=== PATIENT | male | born 1975 | race African-American/Black ===

== ENCOUNTER 2017-03-23 02:07 | Emergency (ER) | payer SELFPAY ==
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
[2017-03-23 02:29] VITALS: TEMP 97.5; BMI 31.0
[2017-03-23 03:13] LABS: BASOPHIL 0.7 % (0-2.0); EOSINOPHIL 3.7 % (0-4.5); MCH 29.1 pg (25.7-33.7); MCHC 33.4 g/dl (32.0-35.9); MEAN CELL VOLUME 86.9 fl (80-96); MEAN PLT VOLUME 7.5 fl (7.5-11.1); PLATELET COUNT 180 K/MM3 (134-434); WHITE BLOOD COUNT 5.2 K/mm3 (4.0-10.0)
[2017-03-23] MEDS ORDERED: HALOPERIDOL LACTATE 5 MG/ML IM ONE ×2 (03:13→08:07)
[2017-03-23] MEDS ORDERED: LORAZEPAM CARPU-JECT 2 MG/ML DISP.SYRIN IM ONE ×3 (03:13→11:37)
[2017-03-23] MEDS ORDERED: LORazepam 2 MG/ML SDV VIAL ONE ×3 (03:24→11:59)
[2017-03-23] MEDS ORDERED: HALOPERIDOL LACTATE 5 MG/ML ONE ×2 (03:24→08:11)
[2017-03-23 03:43] LABS: ALBUMIN 3.7 g/dl (3.4-5.0); BILIRUBIN,TOTAL 0.5 mg/dL (0.2-1.0); CALCIUM 9.3 mg/dL (8.5-10.1); COCKROFT - GAULT 95.44; CREATININE 1.4 mg/dL (0.7-1.3); TOT PROT 7.4 g/dl (6.4-8.2)
[2017-03-23 03:47] LABS: URINE APPEARANCE CLEAR; URINE BILIRUBIN NEGATIVE (NEGATIVE); URINE BLOOD NEGATIVE (NEGATIVE); URINE COLOR LTYELLOW; URINE GLUCOSE (UA) NEGATIVE (NEGATIVE); URINE KETONE NEGATIVE (NEGATIVE); URINE LEUK ESTERASE NEGATIVE (NEGATIVE); URINE NITRITE NEGATIVE (NEGATIVE); URINE PROTEIN NEGATIVE (NEGATIVE); URINE UROBILINOGEN NEGATIVE E.U./dl (0.2-1.0)
[2017-03-23 03:56] LABS: URINE MARIJUANA THC POSITIVE ng/ml (CUTOFF=50)
[2017-03-23 04:29] LABS: TROPONIN I < 0.02 ng/ml (0.00-0.05)
[2017-03-23] MEDS ORDERED: ACETAMINOPHEN 325 MG TABLET (FP) PO ONE (06:48)
[2017-03-23] MEDS ORDERED: ACETAMINOPHEN 325 MG TABLET (FP) ONE (06:49)
[2017-03-23] MEDS ORDERED: MIDAZOLAM HCL 2 MG/2 ML SINGLE DOSE VIAL ONE ×4 (08:14→14:52)
[2017-03-23] MEDS ORDERED: MIDAZOLAM HCL 2 MG/2 ML SINGLE DOSE VIAL IVPUSH ONE (08:23)
[2017-03-23] MEDS ORDERED: MIDAZOLAM HCL 2 MG/2 ML SINGLE DOSE VIAL IM ONE ×4 (08:57→14:46)
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
--- NOTE | 2017-03-23 11:54 | CON.PSY ---
Psychiatry Consult Chief Complaint: Assaultive Behaviour, Paranoia and delusional thinking and behaviour. Symptoms: reports: Aggressivity, Impulsivity, Disorganized/Disruptive Thoughts, Delusions, Paranoia - Previous Psychiatric Treatment Outpatient: More than 6 mos ago Inpatient: Within the last 12 months - Reason for Previous Treatment Reason for Previous Treatment: Biploar Illness, Psychotic Episode - Allergies Allergies: Allergies Allergy/AdvReac Type Severity Reaction Status Date / Time No Known Allergies Allergy Verified 03/23/17 02:19 - Current Living Status Usual Living Arrangement: With Parent - Current Mental Status Evaluation Appearance: Disheveled Attitude: Belligerent - Affect Affect: Expansive Appropriateness: Not Appropriate - Mood Mood: Angry - Speech/Language Expressive: Coherent Receptive: Age Appropriate Comprehension of Spoken Words - Psychomotor Activity Psychomotor Activity: Agitated - Thought Process Thought Process: Loosening of Associations - Thought Content Hallucinations: Present Type: Auditory Delusions: Present Type: Persectory, Grandiose - Self Perception Self Perception: Depersonalization - Cognition Attention: Alert Orientation: Time Memory, Immediate Recall: Intact Memory, Short Term: 2/3 Memory, Remote with Promptin/3 - Concentration Serial Sevens Intact: No Simple Calculations Intact: No - Abstraction Proverb Interpretation: Impaired Judgement: Severely Impaired - Insight Insight: Impaired - Impulse Control Impulse Control: Severly Impaired - Suicidal Ideation Suicidal Ideation: No - Homicidal Ideation Homicidal Ideation: Yes Assessment/Plan Patient requires In Patient Psych Hospitalization.
[2017-03-23] MEDS ORDERED: LORAZEPAM CARPU-JECT 2 MG/ML DISP.SYRIN ONE (12:01)
[2017-03-23] MEDS ORDERED: SODIUM CHLORIDE 1,000 ML IV STA (13:50)
--- NOTE | 2017-03-23 14:07 | EKG ---
Test Reason : Blood Pressure : / mmHG Vent. Rate : 104 BPM Atrial Rate : 104 BPM P-R Int : 160 ms QRS Dur : 074 ms QT Int : 320 ms P-R-T Axes : 040 -07 024 degrees QTc Int : 420 ms SINUS TACHYCARDIA OTHERWISE NORMAL ECG NO PREVIOUS ECGS AVAILABLE Confirmed by ZEV CHOWDHURY MD ([id number]) on 03/23/2017 2:07:24 PM Referred By: Confirmed By:ZEV CHOWDHURY MD
[2017-03-23] MEDS ORDERED: VALPROATE SODIUM 500 MG/5 ML VIAL IVPB ONE (14:56)
[2017-03-23] MEDS ORDERED: ACETAMINOPHEN WITH CODEINE 300MG/30MG TABLET PO ONE (16:33)
[2017-03-23] MEDS ORDERED: ACETAMINOPHEN WITH CODEINE 300MG/30MG TABLET ONE (16:39)
[2017-03-23 17:22] VITALS: BP 130/57; PULSE 82
== END 2017-03-23 17:24 | disposition short-term general hospital (02) ==
LOC: JER 02:07
PROC: 3E023NZ Introduction of Analgesics, Hypnotics, Sedatives into Muscle, Percutaneous Approach (ICD-10-PCS; principal; 2017-03-23)
PROC: 3E023NZ Introduction of Analgesics, Hypnotics, Sedatives into Muscle, Percutaneous Approach (ICD-10-PCS; 2017-03-23)
PROC: 3E023NZ Introduction of Analgesics, Hypnotics, Sedatives into Muscle, Percutaneous Approach (ICD-10-PCS; 2017-03-23)
PROC: 3E023NZ Introduction of Analgesics, Hypnotics, Sedatives into Muscle, Percutaneous Approach (ICD-10-PCS; 2017-03-23)
PROC: 3E023NZ Introduction of Analgesics, Hypnotics, Sedatives into Muscle, Percutaneous Approach (ICD-10-PCS; 2017-03-23)
PROC: 3E023GC Introduction of Other Therapeutic Substance into Muscle, Percutaneous Approach (ICD-10-PCS; 2017-03-23)
PROC: 3E023GC Introduction of Other Therapeutic Substance into Muscle, Percutaneous Approach (ICD-10-PCS; 2017-03-23)
DX: R31.9 Hematuria, unspecified (principal); F10.120 Alcohol abuse with intoxication, uncomplicated
CPT/HCPCS: 36415; 70450-TC; 80053; 80307; 81003; 82550; 82553; 84484; 85025; 93005; 93010; 99285-25

== ENCOUNTER 2019-03-04 06:57 | Emergency (ER) | payer SELFPAY ==
[2019-03-04 07:23] VITALS: PULSE 86; TEMP 98.4; BMI 28.7
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
[2019-03-04 08:11] LABS: BASO % 0.4 % (0-2.0); EOS % 1.7 % (0-4.5); HEMATOCRIT 41.9 % (35.4-49); HEMOGLOBIN 14.2 GM/dL (11.7-16.9); LYMPH % 13.5 % (8-40); MCH 29.6 pg (25.7-33.7); MCHC 33.7 g/dl (32.0-35.9); MEAN CELL VOLUME 87.8 fl (80-96); MEAN PLT VOLUME 7.5 fl (7.5-11.1); MONO % 11.2 % (3.8-10.2); NEUT % 73.2 % (42.8-82.8); PLATELET COUNT 221 K/MM3 (134-434); RBC 4.78 M/mm3 (4.00-5.60); RDW 13.3 % (11.9-15.9)
--- NOTE | 2019-03-04 08:27 | PDOC ---
Attending Attestation - Resident Resident Name: UlisesSupa - ED Attending Attestation I have performed the following: I have examined & evaluated the patient, The case was reviewed & discussed with the resident, I agree w/resident's findings & plan - HPI HPI: 03/04/19 08:28 43M with a PMH of bipolar disorder and seizures presents to the ER with [place] [employer] for a possible syncopal episode. Per PD, the patient was in central booking, grabbed his chest, and fell forward, hitting his head on the ground. He states that he recalls everything but states that he felt shaking as well. back to baseline status, conversive. 03/04/19 08:28 - Physicial Exam PE: 03/04/19 11:22 Agree with the resident's HPI and PE as documented in the electronic medical record. NAD, cooperative, easily aroused and talkative, PERRL, EOMI, nl conjunctiva, anicteric; neck supple. lungs clear, RRR, abdomen soft nontender. BROWN x4, no focal neuro deficits. No peripheral edema. normal color for ethnicity, WWP. in handcuffs, police at bedside - Medical Decision Making 03/04/19 09:12 hpi as documented VS reviewed wnl DDX.: considered interval abnormalities including short QTC or long QT syndrome , WPW, conduction abnormality, Brugada, ACS, PE, ao dissection, electrolyte disturbances, metabolic derangement. CAMP ASSISTANT bleed/mass. seizure vs near syncope Elevated transaminases nieces with a ALT greater than AST, however patient does not have any abdominal symptoms so we'll follow up as an outpatient. CK level is lower than his prior elevations, unlikely precipitants and unremarkable. remainder of labs and lytes normal prior Utox +marijuana EKG normal sinus rhythm at 85 bpm, no interval abnormalities, narrow QRS, ST and T wave segments and morphology normal. no significant derangements,similar to prior. 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 11:[address] angio neg for PE or chest pathology. will discharge, unclear of near syncope episode. no sz activity, EKG without derangements, neg for injury or CAMP ASSISTANT bleed or emergent chest pathology fit for confinement. dispo: Pt informed of my clinical impression, treatment recommendations and disposition plan. All questions answered to patient's satisfaction and expressed understanding and comfort with this. Reasons for returning to the ED sooner discussed including new or persistent/worsening symptoms with the patient otherwise, follow up with primary care physician. At the time of discharge, the patient is alert, clinically improved, tolerating po and verbalizes understanding of instructions, satisfied with the care received and felt comfortable with the plan. Patient does not suffer from an acute life- threatening medical condition at this time and is safe for outpatient follow- up. 03/04/19 09:37 Heart Score/ECG Review #1 ECG reviewed & interpreted by me at: 07:45 General ECG Interpretation: Sinus Rhythm, Normal Rate, Normal Intervals Compared to previous ECG there are: No significant change 03/04/19 09:35 EKG normal sinus rhythm at 85 bpm, no interval abnormalities, narrow QRS, ST and T wave segments and morphology normal.
[2019-03-04 08:34] LABS: PROTHROMBIN TIME (PATIENT) 11.8 SEC (9.7-13.0)
[2019-03-04 08:51] LABS: ALBUMIN 3.8 g/dl (3.4-5.0); ALK PHOS 44 U/L (45-117); ANION GAP 3 MMOL/L (8-16); BILIRUBIN,TOTAL 0.2 mg/dL (0.2-1); BLOOD UREA NITROGEN 17 mg/dL (7-18); CALCIUM 9.5 mg/dL (8.5-10.1); CHLORIDE 101 mmol/L (98-107); CO2 31 mmol/L (21-32); CREATININE 1.1 mg/dL (0.55-1.3); GLUCOSE,RANDOM 92 mg/dL (74-106); POTASSIUM 4.2 mmol/L (3.5-5.1); SGOT/AST 77 U/L (15-37); SGPT/ALT 146 U/L (13-61); SODIUM 136 mmol/L (136-145); TOT PROT 7.5 g/dl (6.4-8.2)
[2019-03-04 11:07] LABS: ANISOCYTOSIS 0; MACROCYTOSIS 0; PLATELET ESTIMATE NORMAL
--- NOTE | 2019-03-04 11:40 | EKG ---
Test Reason : Blood Pressure : / mmHG Vent. Rate : 085 BPM Atrial Rate : 085 BPM P-R Int : 164 ms QRS Dur : 082 ms QT Int : 354 ms P-R-T Axes : 047 013 038 degrees QTc Int : 421 ms NORMAL SINUS RHYTHM NORMAL ECG WHEN COMPARED WITH ECG OF 23-MAR-2017 03:33, NO SIGNIFICANT CHANGE WAS FOUND Confirmed by JOO DUFFY MD ([id number]) on 03/04/2019 11:39:57 AM Referred By: Rosa ISABEL Confirmed By:JOO DUFFY MD
[2019-03-04 12:05] VITALS: BP 144/67
== END 2019-03-04 11:35 ==
LOC: JER 06:57
DX: R55 Syncope and collapse (principal); F31.9 Bipolar disorder, unspecified; R56.9 Unspecified convulsions; F17.210 Nicotine dependence, cigarettes, uncomplicated
CPT/HCPCS: 36415; 70450-TC; 71275-TC; 80053; 82550; 82553; 84484; 85025; 85379; 85610; 93005; 93010; 99283-25

== ENCOUNTER 2019-03-09 06:44 | Emergency (ER) | payer SELFPAY | END 2019-03-09 07:50 | disposition left against medical advice (07) | LOC: JER 06:44 ==

== ENCOUNTER 2019-07-09 11:33 | Emergency (ER) | payer OTHER ==
[2019-07-09 11:56] VITALS: BP 107/68; PULSE 78; TEMP 98.5; BMI 30.1
[2019-07-09] MEDS ORDERED: IBUPROFEN 400 MG TABLET (FP) PO ONE ×2 (12:23→12:29)
--- NOTE | 2019-07-09 12:24 | PDOC ---
History of Present Illness - General Chief Complaint: Injury Stated Complaint: LT MIDDLE FINGER LAC Time Seen by Provider: 07/09/19 11:40 History Source: Patient Exam Limitations: No Limitations (43y/o M with finger nail laceration) Past History - Travel Traveled outside of the country in the last 30 days: No Close contact w/someone who was outside of country & ill: No - Past Medical History Allergies/Adverse Reactions: Allergies Allergy/AdvReac Type Severity Reaction Status Date / Time fish oil Allergy Vomiting Verified 07/09/19 11:39 pollen extracts Allergy Verified 07/09/19 11:39 Home Medications: Ambulatory Orders Divalproex *ER* [Depakote *ER* -] 1,500 mg PO DAILY 03/23/17 Quetiapine Fumarate [Seroquel] 2 tab PO HS 03/23/17 Bacitracin - [Bacitracin Topical Ointment -] 1 applic TP BID 7 Days #30 gr 07/09 Cephalexin [Keflex] 500 mg PO BID 7 Days #14 capsule 07/09/19 Ibuprofen 600 mg PO ACDIN 7 Days #21 tablet 07/09/19 COPD: No Psychiatric Problems: Yes (BIPOLAR ON INJECTION MEDS) - Immunization History Immunization Up to Date: Yes - Suicide/Smoking/Psychosocial Hx Smoking History: Never smoked Have you smoked in the past 12 months: Yes Number of Cigarettes Smoked Daily: 4 Information on smoking cessation initiated: No Hx Alcohol Use: No Drug/Substance Use Hx: No Substance Use Type: Marijuana Review of Systems - Review of Systems Constitutional: No: Chills, Fever Musculoskeletal: Yes: Joint Pain, Other (left middle finger nail laceration). No: Joint Swelling, Muscle Pain, Joint Stiffness *Physical Exam - Vital Signs Last Vital Signs Temp Pulse Resp BP Pulse Ox 98.5 F 78 19 107/68 100 07/09/19 11:37 07/09/19 11:37 07/09/19 11:37 07/09/19 11:37 07/09/19 11:37 - Physical Exam General Appearance: Yes: Nourished Extremity: positive: Normal Capillary Refill, Erythema, Other (Left finger: transverse linear superfical nail bed laceration noted without loss of nail, finger tip tender) Neurologic: positive: watermaster II-XII NML intact, Fully Oriented, Alert, Normal Mood/ Affect, Normal Response, Motor Strength 5/5 ED Treatment Course - RADIOLOGY Radiology Studies Ordered: Category Date Time Status FINGER(S) LEFT [RAD] Stat Radiology 07/09/19 12:21 Ordered Medical Decision Making - Medical Decision Making 07/09/19 12:22 43 years old male with no prior medical history patient is [id number] he presents with left middle finger laceration sustained I will sustain Y working out today patient reported his finger was stuck why he was adjusting his pants that the metal clip landed vital his finger he almost fell off the bench and twisted his left knee as well. His last tetanus is greater than 10 years Examination consist of laceration after fingernail across the distal half of finger he does have full range of motion in the entire finger but is painful Left knee with full range of motion but with tenderness Plan is to x-ray to rule out any fracture tetanus will be updated Motrin for pain xray negative for fx nail bed explored after digital block with 1% lidocaine very superficial laceration it was dressed, finger splint applied abx to pharmacy 07/09/19 13:11 07/09/19 17:53 *DC/Admit/Observation/Transfer Diagnosis at time of Disposition: Laceration of nail bed of finger Qualifiers: Encounter type: initial encounter Qualified Code(s): S61.319A - Laceration without foreign body of unspecified finger with damage to nail, initial encounter Knee pain, left Qualifiers: Chronicity: acute Qualified Code(s): M25.562 - Pain in left knee - Discharge Dispostion Disposition: HOME Condition at time of disposition: Stable - Prescriptions Prescriptions: Bacitracin - [Bacitracin Topical Ointment -] 1 applic TP BID 7 Days #30 gr Cephalexin [Keflex] 500 mg PO BID 7 Days #14 capsule Ibuprofen 600 mg PO ACDIN 7 Days #21 tablet - Referrals Referrals: Gabriel Mary MD [Primary Care Provider] - Chirag Calvert MD [Staff Physician] - - Patient Instructions Printed Discharge Instructions: DI for Nail Bed Injury Additional Instructions: Your xray for finger and knee was negative pleas take antibiotics as prescribed follow up with orthopedic clinic Return to the ER if worsening symptoms occurs - Post Discharge Activity Forms/Work/School Notes: Back to Work
[2019-07-09] MEDS ORDERED: DIPHTH,PERTUSS(ACELL),TET 0.5 ML DISP.SYRIN IM ONE (12:31)
== END 2019-07-09 13:06 | disposition home or self-care (01) ==
LOC: JERFT 11:33
PROC: 2W3KX1Z Immobilization of Left Finger using Splint (ICD-10-PCS; principal; 2019-07-09)
PROC: 3E0234Z Introduction of Serum, Toxoid and Vaccine into Muscle, Percutaneous Approach (ICD-10-PCS; 2019-07-09)
DX: S61.313A Laceration without foreign body of left middle finger with damage to nail, initial encounter (principal); M25.562 Pain in left knee; W26.8XXA Contact with other sharp object(s), not elsewhere classified, initial encounter; Y93.B9 Activity, other involving muscle strengthening exercises; Y92.89 Other specified places as the place of occurrence of the external cause; Y99.8 Other external cause status
CPT/HCPCS: 29130; 73140-TC-LT-FY; 73560-TC-LT-FY; 90471; 90715; 99281-25

== ENCOUNTER 2022-09-05 22:03 | Inpatient (IN) | payer OTHER ==
[2022-09-05 22:08] VITALS: BMI 30.1
[2022-09-05] MEDS ORDERED: ACETAMINOPHEN 1000 MG/100 ML BAG IVPB ONE (22:54)
[2022-09-05] MEDS ORDERED: FAMOTIDINE 20 MG/50 ML IVPB 20 MG/50 ML MG IVPB ONE ×2 (22:54→23:06)
[2022-09-05] MEDS ORDERED: ACETAMINOPHEN INJECTION 100 ML IVPB ONE (23:06)
[2022-09-05] MEDS ORDERED: morphine CARPU-JECT 4 MG/1 ML DISP.SYRIN IVPUSH ONE (23:12)
[2022-09-05] MEDS ORDERED: ONDANSETRON 4 MG/2 ML VIAL IVPUSH ONE (23:14)
[2022-09-05] MEDS ORDERED: ONDANSETRON 4 MG/2 ML VIAL ONE (23:17)
[2022-09-05] MEDS ORDERED: morphine SULFATE 4 MG/ML VIAL ONE (23:17)
[2022-09-05 23:24] LABS: PH,URINE 6.5 (5.0-8.0); URINE APPEARANCE CLEAR; URINE BILIRUBIN NEGATIVE (NEGATIVE); URINE COLOR YELLOW; URINE GLUCOSE (UA) NEGATIVE (NEGATIVE); URINE KETONE NEGATIVE (NEGATIVE); URINE LEUK ESTERASE NEGATIVE (NEGATIVE); URINE NITRITE NEGATIVE (NEGATIVE); URINE PROTEIN NEGATIVE (NEGATIVE)
[2022-09-05 23:26] LABS: BASO % 0.2 % (0-2.0); HEMATOCRIT 43.4 % (35.4-49); HEMOGLOBIN 14.8 GM/dL (11.7-16.9); LYMPH % 8.3 % (8-40); MEAN CELL VOLUME 85.3 fl (80-96); MEAN PLT VOLUME 7.4 fl (7.5-11.1); MONO % 8.2 % (3.8-10.2); NEUT % 83.3 % (42.8-82.8); PLATELET COUNT 198 10^3/uL (134-434); RBC 5.09 M/mm3 (4.00-5.60); WHITE BLOOD COUNT 11.5 K/mm3 (4.0-10.0)
[2022-09-05 23:42] LABS: INR 1.18 (0.83-1.09); PROTHROMBIN TIME (PATIENT) 13.6 SEC (9.7-13.0)
[2022-09-05 23:44] LABS: ACTIVATED PTT 30.9 SECONDS (25.2-36.5)
[2022-09-05 23:45] LABS: ALBUMIN 3.7 g/dl (3.4-5.0); CALCIUM 9.2 mg/dL (8.5-10.1)
[2022-09-05 23:46] LABS: BLOOD UREA NITROGEN 13.1 mg/dL (7-18)
[2022-09-05 23:48] LABS: CREATININE 1.2 mg/dL (0.55-1.3)
[2022-09-05 23:50] LABS: BILIRUBIN,TOTAL 0.7 mg/dL (0.2-1); TOT PROT 7.5 g/dl (6.4-8.2)
[2022-09-06] MEDS ORDERED: SODIUM CHLORIDE 1,000 ML IV STA (01:43)
[2022-09-06] MEDS ORDERED: PIPERACILLIN/TAZOB 3.375 GM 3.375 GM in DEXTROSE 5%-WATER - 50 ML IVPB ONE (02:44)
[2022-09-06] MEDS ORDERED: morphine CARPU-JECT 2 MG/1 ML DISP.SYRIN IVPUSH ONE (02:44)
[2022-09-06] MEDS ORDERED: PIPERACILLIN/TAZOB 3.375 GM 3.375 GM/50 ML BAG IVPB ONE (02:46)
[2022-09-06] MEDS ORDERED: CIPROFLOXACIN 400 MG/D5W 400 MG/200 ML IVPB IVPB ONE (02:57)
[2022-09-06] MEDS ORDERED: SODIUM CHLORIDE 1,000 ML IV SCH (05:00)
[2022-09-06] MEDS ORDERED: BUPIVACAINE HCL/PF 0.5% (5MG/ML) 10 ML VIAL ONE (09:13)
[2022-09-06] MEDS ORDERED: LIDOCAINE HCL/PF 2% SDV 5ML VIAL ONE (09:27)
[2022-09-06] MEDS ORDERED: DEXAMETHASONE SOD PHOSPHATE 4 MG/1 ML VIAL ONE (09:27)
[2022-09-06] MEDS ORDERED: ONDANSETRON 4 MG/2 ML VIAL ONE (09:27)
[2022-09-06] MEDS ORDERED: MIDAZOLAM HCL 2 MG/2 ML SINGLE DOSE VIAL ONE (09:28)
[2022-09-06] MEDS ORDERED: PROPOFOL 20 ML ONE (09:28)
[2022-09-06] MEDS ORDERED: ROCURONIUM BROMIDE 50 MG/5 ML SYRINGE ONE (09:28)
[2022-09-06] MEDS ORDERED: SUCCINYLCHOLINE CHLORIDE 200 MG/10 ML SYRINGE ONE (09:36)
[2022-09-06] MEDS ORDERED: CEFTRIAXONE 2 GM-D5W BAG 2 GM/50 ML BAG IVPB SCH (10:00)
[2022-09-06] MEDS ORDERED: CEFTRIAXONE 2 GM in DEXTROSE 5%-WATER 100 ML IVPB SCH ×2 (10:00→18:00)
[2022-09-06] MEDS ORDERED: ceFAZolin SODIUM 1 GM VIAL ONE (10:04)
[2022-09-06] MEDS ORDERED: ceFAZolin SODIUM 1 GM VIAL IVPB ONE ×2 (10:05→10:08)
[2022-09-06] MEDS ORDERED: KETOROLAC TROMETHAMINE 30 MG/1 ML VIAL ONE (10:42)
[2022-09-06] MEDS ORDERED: GLYCOPYRROLATE 0.2 MG/1 ML VIAL ONE (10:42)
[2022-09-06] MEDS ORDERED: NEOSTIGMINE METHYLSULFATE 0.5 MG/1 ML - 10 ML MDV ONE (10:43)
[2022-09-06] MEDS ORDERED: ACETAMINOPHEN INJECTION 100 ML IVPB ONE ×2 (10:43→11:48)
[2022-09-06] MEDS ORDERED: BUPIVACAINE HCL/PF 0.5% (5 MG/ML) 30 ML VIAL IJ ONE (11:00)
[2022-09-06] MEDS ORDERED: SEVOFLURANE 250 ML BTL ONE (11:05)
[2022-09-06] MEDS ORDERED: ACETAMINOPHEN 1000 MG/100 ML BAG IVPB PRN (11:20)
[2022-09-06] MEDS ORDERED: ONDANSETRON 4 MG/2 ML VIAL IVPUSH PRN (11:33)
[2022-09-06] MEDS ORDERED: ACETAMINOPHEN 1000 MG/100 ML BAG IVPB ONE (11:34)
[2022-09-06] MEDS ORDERED: LACTATED RINGERS SOLUTION 1,000 ML IV SCH (11:45)
[2022-09-06] MEDS: SODIUM CHLORIDE 1,000 ML IV SCH (11:53)
[2022-09-06] MEDS: ACETAMINOPHEN 1000 MG/100 ML BAG IVPB PRN (13:27)
[2022-09-06] MEDS: DIVALPROEX NA *ER* EXTEND REL 500 MG TABLET.SA (FP) PO SCH (21:26)
[2022-09-06] MEDS: oxyCODONE HCL 5 MG TABLET PO PRN (21:29)
[2022-09-06] MEDS ORDERED: DIVALPROEX NA *ER* EXTEND REL 500 MG TABLET.SA (FP) PO SCH (22:00)
[2022-09-07] MEDS: PIPERACILLIN/TAZOB 3.375 GM 3.375 GM in DEXTROSE 5%-WATER - 50 ML IVPB SCH ×3 (01:58→17:37)
[2022-09-07] MEDS ORDERED: PIPERACILLIN/TAZOB 3.375 GM 3.375 GM in DEXTROSE 5%-WATER - 50 ML IVPB SCH (02:00)
[2022-09-07] MEDS: SODIUM CHLORIDE 1,000 ML IV SCH ×2 (02:03→14:02)
[2022-09-07] MEDS: oxyCODONE HCL 5 MG TABLET PO PRN ×2 (04:07→17:38)
[2022-09-07] MEDS: ACETAMINOPHEN 1000 MG/100 ML BAG IVPB PRN (05:23)
[2022-09-07] MEDS ORDERED: ONDANSETRON 4 MG/2 ML VIAL IVPUSH ONE (08:47)
[2022-09-07 12:16] LABS: HEMATOCRIT 41.6 % (35.4-49); HEMOGLOBIN 14.1 GM/dL (11.7-16.9); MEAN CELL VOLUME 85.3 fl (80-96); MEAN PLT VOLUME 8.3 fl (7.5-11.1); PLATELET COUNT 196 10^3/uL (134-434); RBC 4.88 M/mm3 (4.00-5.60); RDW 13.1 % (11.9-15.9); WHITE BLOOD COUNT 9.5 K/mm3 (4.0-10.0)
[2022-09-07 12:44] LABS: CALCIUM 8.9 mg/dL (8.5-10.1)
[2022-09-07 12:45] LABS: BLOOD UREA NITROGEN 19.4 mg/dL (7-18)
[2022-09-07 12:48] LABS: CREATININE 1.4 mg/dL (0.55-1.3)
[2022-09-07 13:55] LABS: ANISOCYTOSIS 0; MACROCYTOSIS 0
[2022-09-07] MEDS ORDERED: ACETAMINOPHEN 500 MG TABLET (FP) PO PRN (16:06)
[2022-09-07] MEDS ORDERED: ARIPIPRAZOLE 400 MG IM SCH (18:00)
[2022-09-07] MEDS: ENOXAPARIN NA (PORCINE) 40 MG/0.4 ML DISP.SYRIN SQ SCH (21:17)
[2022-09-07] MEDS: DIVALPROEX NA *ER* EXTEND REL 500 MG TABLET.SA (FP) PO SCH (21:20)
[2022-09-07] MEDS ORDERED: TRIMETHOBENZAMIDE HCL 200MG/2ML INJ IM ONE (21:32)
[2022-09-08] MEDS ORDERED: oxyCODONE HCL 5 MG TABLET PO PRN (00:07)
[2022-09-08] MEDS ORDERED: ACETAMINOPHEN 1000 MG/100 ML BAG IVPB ONE (00:37)
[2022-09-08] MEDS ORDERED: TRIMETHOBENZAMIDE HCL 200MG/2ML INJ IM ONE (00:38)
[2022-09-08] MEDS: SODIUM CHLORIDE 1,000 ML IV SCH (01:21)
[2022-09-08] MEDS: PIPERACILLIN/TAZOB 3.375 GM 3.375 GM in DEXTROSE 5%-WATER - 50 ML IVPB SCH ×3 (01:28→17:37)
[2022-09-08 08:27] LABS: HEMOGLOBIN 14.2 GM/dL (11.7-16.9); MCH 28.9 pg (25.7-33.7); MCHC 33.9 g/dl (32.0-35.9); MEAN CELL VOLUME 85.2 fl (80-96); MEAN PLT VOLUME 8.3 fl (7.5-11.1); PLATELET COUNT 205 10^3/uL (134-434); RBC 4.92 M/mm3 (4.00-5.60); RDW 13.4 % (11.9-15.9); WHITE BLOOD COUNT 9.9 K/mm3 (4.0-10.0)
[2022-09-08 08:47] LABS: BLOOD UREA NITROGEN 21.7 mg/dL (7-18)
[2022-09-08 08:50] LABS: CREATININE 1.2 mg/dL (0.55-1.3); PHOSPHOROUS 2.8 mg/dL (2.5-4.9)
[2022-09-08 08:51] LABS: BILIRUBIN,TOTAL 0.6 mg/dL (0.2-1)
[2022-09-08 08:52] LABS: TOT PROT 6.2 g/dl (6.4-8.2)
[2022-09-08 08:56] LABS: MAGNESIUM 2.2 mg/dL (1.8-2.4)
[2022-09-08 09:06] LABS: ALBUMIN 2.5 g/dl (3.4-5.0)
[2022-09-08] MEDS: ENOXAPARIN NA (PORCINE) 40 MG/0.4 ML DISP.SYRIN SQ SCH (09:17)
[2022-09-08 09:53] LABS: ANISOCYTOSIS 0; HELMET CELLS 0; HOWELL-JOLLY BODIES 0; MACROCYTOSIS 0; OVALOCYTE 0; ROULEAU 0; SICKELED CELLS 0; TARGET CELLS 0; TEAR DROP CELLS 0; TOXIC GRANULATION 0
[2022-09-08] MEDS ORDERED: TRIMETHOBENZAMIDE HCL 200MG/2ML INJ IM PRN (14:04)
[2022-09-08] MEDS ORDERED: IBUPROFEN 600 MG TABLET (FP) PO PRN (16:25)
[2022-09-08] MEDS ORDERED: ONDANSETRON 4 MG/2 ML VIAL IVPUSH PRN (16:26)
[2022-09-08] MEDS: DIVALPROEX NA *ER* EXTEND REL 500 MG TABLET.SA (FP) PO SCH (21:23)
[2022-09-09] MEDS: PIPERACILLIN/TAZOB 3.375 GM 3.375 GM in DEXTROSE 5%-WATER - 50 ML IVPB SCH ×3 (02:01→18:05)
[2022-09-09] MEDS: SODIUM CHLORIDE 1,000 ML IV SCH (02:05)
[2022-09-09 08:26] LABS: BASO % 0.2 % (0-2.0); EOS % 1.1 % (0-4.5); HEMATOCRIT 37.8 % (35.4-49); HEMOGLOBIN 12.9 GM/dL (11.7-16.9); LYMPH % 10.2 % (8-40); MCH 28.9 pg (25.7-33.7); MEAN PLT VOLUME 7.8 fl (7.5-11.1); MONO % 10.4 % (3.8-10.2); NEUT % 78.1 % (42.8-82.8); PLATELET COUNT 218 10^3/uL (134-434); RBC 4.45 M/mm3 (4.00-5.60); RDW 13.3 % (11.9-15.9); WHITE BLOOD COUNT 8.9 K/mm3 (4.0-10.0)
[2022-09-09 09:08] LABS: ALBUMIN 2.5 g/dl (3.4-5.0); BLOOD UREA NITROGEN 21.7 mg/dL (7-18); CALCIUM 8.5 mg/dL (8.5-10.1)
[2022-09-09 09:09] LABS: MAGNESIUM 2.2 mg/dL (1.8-2.4)
[2022-09-09 09:11] LABS: CREATININE 1.1 mg/dL (0.55-1.3); PHOSPHOROUS 2.6 mg/dL (2.5-4.9)
[2022-09-09 09:12] LABS: BILIRUBIN,TOTAL 0.8 mg/dL (0.2-1); TOT PROT 5.8 g/dl (6.4-8.2)
[2022-09-09] MEDS: ENOXAPARIN NA (PORCINE) 40 MG/0.4 ML DISP.SYRIN SQ SCH (09:35)
[2022-09-09] MEDS ORDERED: VALPROATE SODIUM 500 MG/5 ML VIAL IVPB ONE (23:20)
[2022-09-10] MEDS: DIVALPROEX NA *ER* EXTEND REL 500 MG TABLET.SA (FP) PO SCH (00:58)
[2022-09-10] MEDS ORDERED: VALPROATE SODIUM INJECTION 1,000 MG in DEXTROSE 5%-WATER - 100 ML IVPB ONE (01:00)
[2022-09-10] MEDS: SODIUM CHLORIDE 1,000 ML IV SCH (01:53)
[2022-09-10] MEDS: PIPERACILLIN/TAZOB 3.375 GM 3.375 GM in DEXTROSE 5%-WATER - 50 ML IVPB SCH ×3 (02:17→17:42)
[2022-09-10 08:04] LABS: HEMATOCRIT 39.5 % (35.4-49); HEMOGLOBIN 13.1 GM/dL (11.7-16.9); MCH 28.6 pg (25.7-33.7); MCHC 33.1 g/dl (32.0-35.9); MEAN CELL VOLUME 86.2 fl (80-96); MEAN PLT VOLUME 7.3 fl (7.5-11.1); PLATELET COUNT 244 10^3/uL (134-434); RBC 4.59 M/mm3 (4.00-5.60); RDW 13.3 % (11.9-15.9); WHITE BLOOD COUNT 7.6 K/mm3 (4.0-10.0)
[2022-09-10 08:26] LABS: CALCIUM 8.8 mg/dL (8.5-10.1)
[2022-09-10 08:27] LABS: ALBUMIN 2.6 g/dl (3.4-5.0); BLOOD UREA NITROGEN 19.6 mg/dL (7-18); MAGNESIUM 2.2 mg/dL (1.8-2.4)
[2022-09-10 08:30] LABS: CREATININE 1.1 mg/dL (0.55-1.3); PHOSPHOROUS 3.2 mg/dL (2.5-4.9)
[2022-09-10 08:31] LABS: BILIRUBIN,TOTAL 0.5 mg/dL (0.2-1); TOT PROT 6.1 g/dl (6.4-8.2)
[2022-09-10] MEDS: ENOXAPARIN NA (PORCINE) 40 MG/0.4 ML DISP.SYRIN SQ SCH (09:43)
[2022-09-10 10:25] LABS: ANISOCYTOSIS 2+; MACROCYTOSIS 0; OVALOCYTE 1+; TEAR DROP CELLS 1+
[2022-09-10] MEDS ORDERED: SODIUM CHLORIDE 1,000 ML IV SCH (11:14)
[2022-09-10] MEDS: DEXTROSE 5%-LACTATED RINGERS 1,000 ML IV SCH (12:17)
[2022-09-10] MEDS ORDERED: ACETAMINOPHEN 1000 MG/100 ML BAG IVPB ONE (19:50)
[2022-09-10] MEDS: VALPROATE SODIUM INJECTION 1,000 MG in DEXTROSE 5%-WATER - 100 ML IVPB SCH (21:19)
[2022-09-10] MEDS ORDERED: VALPROATE SODIUM 500 MG/5 ML VIAL IVPB SCH (22:00)
[2022-09-11] MEDS: PIPERACILLIN/TAZOB 3.375 GM 3.375 GM in DEXTROSE 5%-WATER - 50 ML IVPB SCH ×2 (01:56→10:12)
[2022-09-11] MEDS ORDERED: ACETAMINOPHEN 1000 MG/100 ML BAG IVPB ONE (06:30)
[2022-09-11] MEDS: ACETAMINOPHEN 1000 MG/100 ML BAG IVPB ONE ×2 (06:46)
[2022-09-11 09:05] LABS: HEMATOCRIT 43.1 % (35.4-49); HEMOGLOBIN 14.5 GM/dL (11.7-16.9); MCH 29.2 pg (25.7-33.7); MCHC 33.7 g/dl (32.0-35.9); MEAN CELL VOLUME 86.6 fl (80-96); MEAN PLT VOLUME 7.3 fl (7.5-11.1); PLATELET COUNT 264 10^3/uL (134-434); RBC 4.97 M/mm3 (4.00-5.60); RDW 13.3 % (11.9-15.9); WHITE BLOOD COUNT 7.1 K/mm3 (4.0-10.0)
[2022-09-11] MEDS: ENOXAPARIN NA (PORCINE) 40 MG/0.4 ML DISP.SYRIN SQ SCH (10:12)
[2022-09-11 10:19] LABS: CALCIUM 9.5 mg/dL (8.5-10.1)
[2022-09-11 10:20] LABS: BLOOD UREA NITROGEN 16.4 mg/dL (7-18); MAGNESIUM 2.3 mg/dL (1.8-2.4)
[2022-09-11 10:22] LABS: CREATININE 1.2 mg/dL (0.55-1.3); PHOSPHOROUS 3.1 mg/dL (2.5-4.9)
[2022-09-11 10:23] LABS: BILIRUBIN,TOTAL 1.2 mg/dL (0.2-1)
[2022-09-11 10:24] LABS: ALBUMIN 3.2 g/dl (3.4-5.0); TOT PROT 7.6 g/dl (6.4-8.2)
[2022-09-11 11:50] LABS: ANISOCYTOSIS 0; HELMET CELLS 0; HOWELL-JOLLY BODIES 0; MACROCYTOSIS 0; OVALOCYTE 0; ROULEAU 0; SICKELED CELLS 0; TARGET CELLS 0; TEAR DROP CELLS 0; TOXIC GRANULATION 0
[2022-09-11] MEDS: AMINO ACIDS 4.25%/D5W 1,000 ML IV SCH (16:35)
[2022-09-11] MEDS: DEXTROSE 5%-LACTATED RINGERS 1,000 ML IV SCH (16:35)
[2022-09-12] MEDS: VALPROATE SODIUM INJECTION 1,000 MG in DEXTROSE 5%-WATER - 100 ML IVPB SCH ×2 (00:10→22:26)
[2022-09-12 02:05] VITALS: RESP 18
[2022-09-12 07:45] LABS: BASO % 0.4 % (0-2.0); HEMATOCRIT 38.9 % (35.4-49); HEMOGLOBIN 13.2 GM/dL (11.7-16.9); LYMPH % 14.7 % (8-40); MCH 29.5 pg (25.7-33.7); MEAN CELL VOLUME 86.5 fl (80-96); MONO % 13.6 % (3.8-10.2); NEUT % 69.3 % (42.8-82.8); PLATELET COUNT 237 10^3/uL (134-434); RDW 13.3 % (11.9-15.9)
[2022-09-12 08:13] LABS: ALBUMIN 2.6 g/dl (3.4-5.0); BLOOD UREA NITROGEN 18.6 mg/dL (7-18); CALCIUM 8.4 mg/dL (8.5-10.1); MAGNESIUM 1.9 mg/dL (1.8-2.4)
[2022-09-12 08:16] LABS: PHOSPHOROUS 3.1 mg/dL (2.5-4.9)
[2022-09-12 08:17] LABS: BILIRUBIN,TOTAL 0.8 mg/dL (0.2-1); TOT PROT 6.1 g/dl (6.4-8.2)
[2022-09-12 09:16] LABS: ANISOCYTOSIS 2+; MACROCYTOSIS 0; OVALOCYTE 1+; TEAR DROP CELLS 1+
[2022-09-12] MEDS: ENOXAPARIN NA (PORCINE) 40 MG/0.4 ML DISP.SYRIN SQ SCH (10:34)
[2022-09-12] MEDS: AMINO ACIDS 4.25%/D5W 1,000 ML IV SCH (14:45)
[2022-09-13 07:40] LABS: HEMOGLOBIN 12.9 GM/dL (11.7-16.9); MCH 29.2 pg (25.7-33.7); MCHC 33.9 g/dl (32.0-35.9); MEAN PLT VOLUME 7.2 fl (7.5-11.1); PLATELET COUNT 274 10^3/uL (134-434); RBC 4.42 M/mm3 (4.00-5.60); RDW 13.2 % (11.9-15.9)
[2022-09-13 07:44] LABS: ALBUMIN 2.5 g/dl (3.4-5.0); BLOOD UREA NITROGEN 15.9 mg/dL (7-18); CALCIUM 8.4 mg/dL (8.5-10.1)
[2022-09-13 07:48] LABS: BILIRUBIN,TOTAL 0.5 mg/dL (0.2-1); TOT PROT 6.2 g/dl (6.4-8.2)
[2022-09-13 08:43] LABS: ANISOCYTOSIS 2+; MACROCYTOSIS 0
[2022-09-13] MEDS: ENOXAPARIN NA (PORCINE) 40 MG/0.4 ML DISP.SYRIN SQ SCH (10:50)
[2022-09-13] MEDS ORDERED: DIVALPROEX NA *ER* EXTEND REL 500 MG TABLET.SA (FP) PO SCH (22:00)
[2022-09-13] MEDS: metroNIDAZOLE 250 MG TABLET PO SCH (22:16)
[2022-09-14] MEDS: metroNIDAZOLE 250 MG TABLET PO SCH (06:00)
[2022-09-14 06:14] VITALS: BP 132/65; PULSE 69; TEMP 98.3
[2022-09-14] MEDS: ENOXAPARIN NA (PORCINE) 40 MG/0.4 ML DISP.SYRIN SQ SCH (10:59)
[2022-10-06] MEDS ORDERED: ARIPIPRAZOLE 400 MG IM SCH (11:43)
== END 2022-09-14 11:21 | disposition home or self-care (01) | DRG 225 ==
LOC: JER 22:03 → JERBED 09-06 02:58 → J7W 09-06 13:12 → J4W 09-07 13:40
PROVIDERS: ADMIT Internal Medicine; ATTEND Internal Medicine
PROC: 0DTJ4ZZ Resection of Appendix, Percutaneous Endoscopic Approach (ICD-10-PCS; principal; 2022-09-06 09:30)
DX: K35.20 Acute appendicitis with generalized peritonitis, without abscess (principal); K56.7 Ileus, unspecified; F17.210 Nicotine dependence, cigarettes, uncomplicated; F31.9 Bipolar disorder, unspecified; G40.909 Epilepsy, unspecified, not intractable, without status epilepticus; J98.11 Atelectasis; K91.89 Other postprocedural complications and disorders of digestive system; Y83.9 Surgical procedure, unspecified as the cause of abnormal reaction of the patient, or of later complication, without mention of misadventure at the time of the procedure
CPT/HCPCS: 0241U-QW; 36415; 71045-TC-FY; 71046-TC-FY; 74019-TC-FY; 74177-TC; 80048; 80053; 81003; 82248; 83605; 83690; 83735; 84100; 85025; 85610; 85730; 86850; 86900; 86901; 87070; 87075; 87086; 87186; 87205; 88304-TC; 93005; 93010; 94010; 94760; 97116-GP; 97161-GP; 99285-25; Q9967

== ENCOUNTER 2022-11-07 19:59 | Emergency (ER) | payer OTHER ==
[2022-11-07 20:19] VITALS: BP 120/59; PULSE 90; RESP 20; TEMP 102.3; BMI 29.5
[2022-11-07] MEDS ORDERED: ACETAMINOPHEN 500 MG TABLET (FP) PO ONE (20:30)
[2022-11-07] MEDS ORDERED: SODIUM CHLORIDE 1,000 ML IV STA (21:16)
[2022-11-07 21:59] LABS: BASO % 0.3 % (0-2.0); EOS % 0.2 % (0-4.5); HEMATOCRIT 37.8 % (35.4-49); HEMOGLOBIN 12.8 GM/dL (11.7-16.9); LYMPH % 7.3 % (8-40); MCHC 33.9 g/dl (32.0-35.9); MEAN CELL VOLUME 85.6 fl (80-96); MEAN PLT VOLUME 7.8 fl (7.5-11.1); MONO % 7.1 % (3.8-10.2); NEUT % 85.1 % (42.8-82.8); PLATELET COUNT 163 10^3/uL (134-434); RBC 4.41 M/mm3 (4.00-5.60); RDW 13.8 % (11.9-15.9)
[2022-11-07 22:08] LABS: INR 1.08 (0.83-1.09); PROTHROMBIN TIME (PATIENT) 12.4 SEC (9.7-13.0)
[2022-11-07 22:10] LABS: ACTIVATED PTT 30.9 SECONDS (25.2-36.5)
[2022-11-07 22:14] LABS: ALBUMIN 3.8 g/dl (3.4-5.0); BLOOD UREA NITROGEN 16.4 mg/dL (7-18); CALCIUM 9.2 mg/dL (8.5-10.1)
[2022-11-07 22:18] LABS: CREATININE 1.2 mg/dL (0.55-1.3)
[2022-11-07 22:19] LABS: BILIRUBIN,TOTAL 0.5 mg/dL (0.2-1); TOT PROT 7.3 g/dl (6.4-8.2)
[2022-11-07 22:47] LABS: URINE APPEARANCE CLEAR; URINE BILIRUBIN NEGATIVE (NEGATIVE); URINE COLOR YELLOW; URINE GLUCOSE (UA) NEGATIVE (NEGATIVE); URINE KETONE NEGATIVE (NEGATIVE); URINE LEUK ESTERASE NEGATIVE (NEGATIVE); URINE NITRITE NEGATIVE (NEGATIVE); URINE PROTEIN NEGATIVE (NEGATIVE)
== END 2022-11-08 00:20 | disposition home or self-care (01) ==
LOC: JER 19:59
PROC: 3E0337Z Introduction of Electrolytic and Water Balance Substance into Peripheral Vein, Percutaneous Approach (ICD-10-PCS; principal; 2022-11-07)
DX: B34.9 Viral infection, unspecified (principal); R50.9 Fever, unspecified
CPT/HCPCS: 0241U-QW; 36415; 73521-TC-FY; 80053; 81003; 85025; 85610; 85651; 85730; 86140; 86850; 86900; 86901; 87040; 87086; 93005; 93010; 99285-25

== ENCOUNTER 2023-08-28 11:39 | Emergency (ER) | payer OTHER ==
[2023-08-28 12:28] VITALS: BP 116/53; PULSE 64; RESP 18; TEMP 99; BMI 31.5
[2023-08-28] MEDS ORDERED: KETOROLAC TROMETHAMINE 60 MG/2 ML VIAL IM ONE (13:48)
[2023-08-28] MEDS ORDERED: KETOROLAC TROMETHAMINE 60 MG/2 ML VIAL ONE (13:53)
== END 2023-08-28 15:11 | disposition home or self-care (01) ==
LOC: JER 11:39
PROC: 3E0233Z Introduction of Anti-inflammatory into Muscle, Percutaneous Approach (ICD-10-PCS; principal; 2023-08-28)
DX: K61.0 Anal abscess (principal)
CPT/HCPCS: 99284-25

== ENCOUNTER 2023-08-29 13:20 | Emergency (ER) | payer OTHER ==
[2023-08-29 13:24] VITALS: BP 111/45; PULSE 66; RESP 18; TEMP 98.3; BMI 31.5
== END 2023-08-29 16:07 | disposition home or self-care (01) ==
LOC: JERFT 13:20
DX: L02.31 Cutaneous abscess of buttock (principal); Z48.01 Encounter for change or removal of surgical wound dressing
CPT/HCPCS: 99282-25

== ENCOUNTER 2024-11-04 19:55 | Emergency (ER) | payer OTHER ==
[2024-11-04 20:09] VITALS: BP 116/69; PULSE 66; RESP 18; TEMP 98.4; BMI 31.2
[2024-11-04] MEDS ORDERED: IBUPROFEN 600 MG TABLET (FP) PO ONE (21:45)
[2024-11-04] MEDS: IBUPROFEN 600 MG TABLET (FP) PO ONE (21:48)
== END 2024-11-05 00:17 | disposition home or self-care (01) ==
LOC: JERFT 19:55
PROC: 0H98XZZ Drainage of Buttock Skin, External Approach (ICD-10-PCS; principal; 2024-11-04)
DX: K61.1 Rectal abscess (principal)
CPT/HCPCS: 99283-25